=== PATIENT | male | born 1930 | race Caucasian/White ===

== ENCOUNTER 2018-08-20 11:44 | Observation (INO) | payer OTHER, MEDICARE ==
[2018-08-20 13:07] LABS: Absolute Lymphocytes (CBC) 0.9 K/uL (0.7-4.9); Absolute Monocytes 0.4 K/uL (0.1-1.3); Absolute Neutrophil 2.9 K/uL (1.8-8.0); Basophils % 0.3 % (0-1.3); Eosinophils % 3.4 % (0-4.4); Hematocrit 39.2 % (39.6-49.0); Lymphocytes % 21.1 % (15.3-44.8); MCH 29.6 pg (27.0-35.0); MCV 88.7 fL (80-100); MPV 7.3 fL (7.6-11.3); Monocytes % 8.7 % (3.3-12.3); RBC Red Blood Cell Count 4.42 M/uL (4.33-5.43)
[2018-08-20] MEDS ORDERED: NA CHLORIDE 0.9% 1,000 ML ONE (13:27)
[2018-08-20 13:28] LABS: Albumin 3.3 g/dL (3.4-5.0); Bilirubin Direct 0.2 mg/dL (0-0.2); Bilirubin Total 0.5 mg/dL (0.2-1.0); Potassium 3.8 mmol/L (3.5-5.1)
[2018-08-20 16:07] LABS: Urine Blood NEGATIVE (NEG); Urine Glucose NEGATIVE (NEG); Urine Protein 1+ (NEG); Urine Specific Gravity 1.015 (1.005-1.030); Urine pH 5.5 (5.0-7.0)
--- NOTE | 2018-08-20 16:23 | RAD REPORT ---
EXAM DESCRIPTION: CT - Abdomen Pelvis Wo Contrast - 08/20/2018 4:09 pm CLINICAL HISTORY: Abdominal pain. ORAL ONLY, CR TOO HIGH COMPARISON: Abdomen Pelvis Wo Contrast dated 02/13/2016 TECHNIQUE: CT imaging of the abdomen and pelvis was performed without contrast. Solid organ and vasc ular assessment is limited due to lack of IV contrast. All CT scans are performed using dose optimization technique as appropriate and may include automated exposure control or mA/KV adjustment according to patient size. FINDINGS: The lower lung ornelas are clear.Small hiatal hernia is present. The liver, spleen, pancreas, adrenal glands are within normal limits for a limited non-contrast exami nation.No renal stone or hydronephrosis. Slightly complicated bilateral renal cysts are noted. No bowel obstruction, free air, free fluid or abscess. Small soft tissue nodule is seen in the left a spect of the intra-abdominal fat adjacent to both small bowel and sigmoid colon measuring 10 mm. The surrounding fat is mildly inflamed. The appendix is normal. Moderate fecal retention in the rectosigm oid colon. The osseous structures are within normal limits. IMPRESSION: Small soft tissue density lesion in the left intra-abdominal fat with mild surrounding i nflammatory changes is nonspecific but may be related to enlarged lymph node. Advise followup CT imag ing in 3-6 months for surveillance purposes. Significant rectal fecal retention. A limited non-contrast examination was performed as detailed.
[2018-08-20] MEDS ORDERED: ONDANSETRON 4 MG/2 ML VIAL IV PRN (16:57)
[2018-08-20] MEDS ORDERED: ACETAMINOPHEN 500 MG TAB PO PRN (16:57)
--- NOTE | 2018-08-20 16:57 | EDPHYS ---
Physician Documentation [facility] Name: Richard Carranza Age: 88 yrs Sex: Male : 1930 Arrival Date: 08/20/2018 Time: 11:59 Bed 14 Private MD: ED Physician Serge Ariza HPI: 08/20 12:15 This 88 yrs old Male presents to ER via EMS with complaints of Blood Pressure jmm Problem. 12:15 The patient presents to the emergency department with diarrhea, abdominal pain. Onset: jmm The symptoms/episode began/occurred gradually, 3 day(s) ago. Possible causes: unknown. This is an 88 year old male with history of CVA, dementia that presents to the ED with watery bowel movements for 3 days. states the patient had a systolic blood pressure reading of 105 earlier today and was concerned the patient may be dehydrated. . Historical: - Allergies: 12:17 NKDA; iw - Home Meds: 12:21 Vitamin B-12 Oral daily [Active]; Vitamin D3 Complete Oral [Active]; losartan 100 mg iw Oral tab 1 tab once daily [Active]; Plavix 75 mg Oral tab 1 tab once daily [Active]; memantine oral oral [Active]; losartan oral oral once daily [Active]; - PMHx: 12:17 CVA; Dementia; Hypertension; TIA; Cataracts; iw - PSHx: 12:17 right knee; left hand; wrist; iw - Immunization history:: Adult Immunizations up to date. - Social history:: Smoking status: Patient/guardian denies using tobacco. - Ebola Screening: : Patient negative for fever greater than or equal to 101.5 degrees Fahrenheit, and additional compatible Ebola Virus Disease symptoms Patient denies exposure to infectious person Patient denies travel to an Ebola-affected area in the 21 days before illness onset No symptoms or risks identified at this time. ROS: 12:15 Constitutional: Negative for fever, chills, and weight loss, Eyes: Negative for injury, jmm pain, redness, and discharge, Cardiovascular: Negative for chest pain, palpitations, and edema, Respiratory: Negative for shortness of breath, cough, wheezing, and pleuritic chest pain. 12:15 Abdomen/GI: Positive for diarrhea. 12:15 All other systems are negative. Exam: 12:15 Constitutional: This is a well developed, well nourished patient who is awake, alert, jmm and in no acute distress. Head/Face: atraumatic. Eyes: EOMI, no conjunctival erythema appreciated ENT: Moist Mucus Membranes Neck: Trachea midline, Supple Chest/axilla: Normal chest wall appearance and motion. Cardiovascular: Regular rate and rhythm. No edema appreciated Respiratory: Normal respirations, no respiratory distress appreciated 12:15 Abdomen/GI: Inspection: abdomen appears normal, Bowel sounds: normal, Palpation: soft, mild abdominal tenderness, in the right lower quadrant and left lower quadrant. 12:15 Back: ROM is normal. 12:15 Musculoskeletal/extremity: ROM: intact in all extremities. 12:15 Skin: Appearance: Color: normal in color. 12:15 Neuro: Orientation: is normal, Mentation: is normal, Memory: is normal. 12:15 Psych: Behavior/mood is pleasant, cooperative. Vital Signs: 12:15 BP 174 / 59; Pulse 56; Resp 16; Temp 97.6(TE); Pulse Ox 100% on R/A; Weight 89.36 kg; iw Height 6 ft. 1 in. (185.42 cm); Pain 0/10; 13:33 BP 136 / 56; Pulse 54; Resp 14; Temp 98.4; Pulse Ox 99% on R/A; Pain 0/10; ch 14:50 BP 140 / 65; Pulse 58; Resp 16; Temp 97.9; Pulse Ox 99% on R/A; Pain 0/10; ch 17:46 BP 167 / 65; Pulse 62; Resp 15; Temp 99.6; Pulse Ox 99% on R/A; Pain 0/10; ch 18:34 BP 156 / 71; Pulse 54; Resp 18; Pulse Ox 99% ; Pain 0/10; ch 19:08 BP 158 / 66; Pulse 52; Resp 16; Pulse Ox 98% on R/A; mt 20:30 BP 147 / 78; Pulse 60; Resp 18; Pulse Ox 97% on R/A; jb4 12:15 Body Mass Index 25.99 (89.36 kg, 185.42 cm) iw MDM: 12:15 Patient medically screened. [facility] 16:54 Data reviewed: vital signs, nurses notes. Counseling: I had a detailed discussion with patricio the patient and/or guardian regarding: the historical points, exam findings, and any diagnostic results supporting the discharge/admit diagnosis, lab results, radiology results. ED course: I discussed the patient with Dr. Stevenson whom accepted admission. 08/20 12:21 Order name: Basic Metabolic Panel; Complete Time: 13:42 [facility] 08/20 16:51 Interpretation: Abnormal: GFR 41. [facility] 08/20 12:21 Order name: CBC with Diff; Complete Time: 13:42 [facility] 08/20 12:21 Order name: Creatinine for Radiology; Complete Time: 13:42 [facility] 08/20 12:21 Order name: Hepatic Function; Complete Time: 13:42 [facility] 08/20 12:21 Order name: Lipase; Complete Time: 13:42 [facility] 08/20 15:27 Order name: Urine Dipstick--Ancillary (enter results); Complete Time: 16:11 08/20 16:58 Order name: Basic Metabolic Panel [facility] 08/20 16:58 Order name: Basic Metabolic Panel [facility] 08/20 16:58 Order name: CBC with Automated Diff [facility] 08/20 16:58 Order name: CBC with Automated Diff [facility] 08/20 16:58 Order name: Lipase [facility] 08/20 16:58 Order name: Lipase [facility] 08/20 16:58 Order name: Liver (Hepatic) Function [facility] 08/20 16:58 Order name: Liver (Hepatic) Function [facility] 08/20 12:21 Order name: IV Saline Lock; Complete Time: 13:04 [facility] 08/20 12:21 Order name: Labs collected and sent; Complete Time: 13:04 [facility] 08/20 14:22 Order name: Abdomen ; Complete Time: 16:28 [facility] 08/20 16:58 Order name: NPO EDIN Administered Medications: 13:35 Drug: NS 0.9% 500 ml Route: IV; Rate: bolus; Site: left antecubital; ch 15:13 Follow up: IV Status: Completed infusion; IV Intake: 500ml ch 17:00 Drug: Rocephin - (cefTRIAXone) 1 grams Route: IVPB; Infused Over: 30 mins; Site: left ch antecubital; 18:32 Follow up: IV Status: Completed infusion; IV Intake: 50ml ch Disposition: 08/21 13:56 Co-signature as Attending Physician, Serge Ariza MD I agree with the assessment and kdr plan of care. Disposition: 08/20/18 16:55 Hospitalization ordered by Paolo Stevenson for Observation. Preliminary diagnosis are Dehydration, Diarrhea, unspecified. - Bed requested for Telemetry/MedSurg (observation). - Status is Observation. jb4 - Condition is Stable. - Problem is new. - Symptoms are unchanged. UTI on Admission? No Signatures: Dispatcher [employer] [facility] Binta Arriaga, RN RN Serge Zaldivar MD MD [facility] Junior Nixon PA PA [facility] Luba Bowen, RN RN Anand Toledo em1 Richard Baker RN RN jb4 Corrections: (The following items were deleted from the chart) 08/20 14:22 12:22 Abdomen Pelvis W Con+CT.RAD.BRZ ordered. [facility] 19:25 16:55 Hospitalization Ordered by Paolo Stevenson MD for Observation. Preliminary em1 diagnosis is Dehydration; Diarrhea, unspecified. Bed requested for Telemetry/MedSurg (observation). Status is Observation. Condition is Stable. Problem is new. Symptoms are unchanged. UTI on Admission? No. [facility] 21:17 19:25 08/20/2018 16:55 Hospitalization Ordered by Paolo Stevenson MD for Observation. jb4 Preliminary diagnosis is Dehydration; Diarrhea, unspecified. Bed requested for Telemetry/MedSurg (observation). Status is Observation. Condition is Stable. Problem is new. Symptoms are unchanged. UTI on Admission? No. em1
--- NOTE | 2018-08-20 16:57 | ER ---
Nurse's Notes [facility] Name: Richard Carranza Age: 88 yrs Sex: Male : 1930 Arrival Date: 08/20/2018 Time: 11:59 Bed 14 Private MD: Diagnosis: Dehydration;Diarrhea, unspecified Presentation: 08/20 12:11 Presenting complaint: EMS states: was seen by PT today and was told his BP was running iw low, also had diarrhea yesterday, not eating much, felt weak yesterday. Transition of care: patient was not received from another setting of care. Onset of symptoms was August 20, 2018. Risk Assessment: Do you want to hurt yourself or someone else? Patient reports no desire to harm self or others. Initial Sepsis Screen: Does the patient meet any 2 criteria? No. Patient's initial sepsis screen is negative. Does the patient have a suspected source of infection? No. Patient's initial sepsis screen is negative. Care prior to arrival: None. 12:11 Method Of Arrival: EMS: [facility] iw 12:11 Acuity: MARA 3 iw Triage Assessment: 13:33 General: Appears in no apparent distress. comfortable, Behavior is calm, cooperative, ch appropriate for age. Pain: Denies pain. Neuro: Level of Consciousness is awake, alert, obeys commands, Oriented to person, place, Eyeglass Frame Truer are equal bilaterally Moves all extremities. Gait is unsteady, Speech is normal, Facial symmetry appears normal, Facial symmetry: tongue is midline, Pupils are PERRLA. Respiratory: Airway is patent Respiratory effort is even, unlabored, Breath sounds are clear bilaterally. GI: Abdomen is round non-distended, Bowel sounds present X 4 quads. Abd is soft X 4 quads Abdomen is tender to palpation in right lower quadrant and left lower quadrant Reports diarrhea, nausea. Derm: Skin is pale. Historical: - Allergies: 12:17 NKDA; iw - Home Meds: 12:21 Vitamin B-12 Oral daily [Active]; Vitamin D3 Complete Oral [Active]; losartan 100 mg iw Oral tab 1 tab once daily [Active]; Plavix 75 mg Oral tab 1 tab once daily [Active]; memantine oral oral [Active]; losartan oral oral once daily [Active]; - PMHx: 12:17 CVA; Dementia; Hypertension; TIA; Cataracts; iw - PSHx: 12:17 right knee; left hand; wrist; iw - Immunization history:: Adult Immunizations up to date. - Social history:: Smoking status: Patient/guardian denies using tobacco. - Ebola Screening: : Patient negative for fever greater than or equal to 101.5 degrees Fahrenheit, and additional compatible Ebola Virus Disease symptoms Patient denies exposure to infectious person Patient denies travel to an Ebola-affected area in the 21 days before illness onset No symptoms or risks identified at this time. Screenin:50 Abuse screen: Denies threats or abuse. Denies injuries from another. Nutritional ch screening: On. Tuberculosis screening: No symptoms or risk factors identified. Fall Risk None identified. Assessment: 14:50 General: Appears in no apparent distress. comfortable, Behavior is calm, cooperative, ch appropriate for age. Pain: Denies pain. Neuro: Level of Consciousness is awake, alert, obeys commands, Oriented to person, place, Eyeglass Frame Truer are equal bilaterally Moves all extremities. Full function. Respiratory: Airway is patent Trachea midline Respiratory effort is even, unlabored. GI: Abdomen is round non-distended, Bowel sounds present X 4 quads. Abd is soft X 4 quads Abdomen is tender to palpation in right lower quadrant, left lower quadrant and abdomen diffusely. : No signs and/or symptoms were reported regarding the genitourinary system. Derm: Skin is pale. 15:11 Reassessment: Patient appears in no apparent distress at this time. No changes from previously documented assessment. Patient and/or family updated on plan of care and expected duration. Pain level reassessed. pt assisted oob to use urinal. pt stands with assistance. pt has had a bm, pt cleaned, brief changed, gown changed. pt tolerated well, awaiting ct scan. pt finished contrast at 1430. 16:30 Reassessment: Patient appears in no apparent distress at this time. No changes from previously documented assessment. Patient and/or family updated on plan of care and expected duration. Pain level reassessed. 17:45 Reassessment: Patient appears in no apparent distress at this time. Patient and/or ch family updated on plan of care and expected duration. Pain level reassessed. pt oob again for urinal, and bm. pt cleaned again. 19:00 Reassessment: Patient appears in no apparent distress at this time. Patient and/or jb4 family updated on plan of care and expected duration. Pain level reassessed. respirations even and unlabored. Pt is alert and oriented to self and location. Family reports this is normal for the pt. 20:18 Reassessment: Patient appears in no apparent distress at this time. No changes from jb4 previously documented assessment. Patient and/or family updated on plan of care and expected duration. Pain level reassessed. Assisted pt with urination. Unsteady gate noted. pt assisted back to bed. both rails up. family at the bedside. Vital Signs: 12:15 BP 174 / 59; Pulse 56; Resp 16; Temp 97.6(TE); Pulse Ox 100% on R/A; Weight 89.36 kg; iw Height 6 ft. 1 in. (185.42 cm); Pain 0/10; 13:33 BP 136 / 56; Pulse 54; Resp 14; Temp 98.4; Pulse Ox 99% on R/A; Pain 0/10; ch 14:50 BP 140 / 65; Pulse 58; Resp 16; Temp 97.9; Pulse Ox 99% on R/A; Pain 0/10; ch 17:46 BP 167 / 65; Pulse 62; Resp 15; Temp 99.6; Pulse Ox 99% on R/A; Pain 0/10; ch 18:34 BP 156 / 71; Pulse 54; Resp 18; Pulse Ox 99% ; Pain 0/10; ch 19:08 BP 158 / 66; Pulse 52; Resp 16; Pulse Ox 98% on R/A; mt 20:30 BP 147 / 78; Pulse 60; Resp 18; Pulse Ox 97% on R/A; jb4 12:15 Body Mass Index 25.99 (89.36 kg, 185.42 cm) ED Course: 11:59 Patient arrived in ED. iw 12:03 Junior Nixon PA is PHCP. [facility] 12:03 Serge Ariza MD is Attending Physician. [facility] 12:13 Binta Arriaga, ROBE is Primary Nurse. 12:15 Triage completed. iw 12:15 Arm band placed on. iw 13:30 No provider procedures requiring assistance completed. Inserted saline lock: 22 gauge ch in left antecubital area, using aseptic technique. Blood collected. 14:50 Patient has correct armband on for positive identification. Placed in gown. Bed in low ch position. Call light in reach. Side rails up X2. Adult w/ patient. Pulse ox on. NIBP on. Warm blanket given. 16:09 Abdomen In Process Unspecified. EDMS 16:55 Paolo Stevenson MD is Hospitalizing Provider. [facility] 19:27 Report given to Pacheco. 19:27 Missed attempt(s): 22 gauge in left upper arm. ch 20:45 Patient admitted, IV remains in place. jb4 21:16 Primary Nurse role handed off by Binta Arriaga, RN charley 21:16 Richard Baker, RN is Primary Nurse. jb4 Administered Medications: 13:35 Drug: NS 0.9% 500 ml Route: IV; Rate: bolus; Site: left antecubital; 15:13 Follow up: IV Status: Completed infusion; IV Intake: 500ml 17:00 Drug: Rocephin - (cefTRIAXone) 1 grams Route: IVPB; Infused Over: 30 mins; Site: left ch antecubital; 18:32 Follow up: IV Status: Completed infusion; IV Intake: 50ml ch Intake: 15:13 IV: 500ml; Total: 500ml. ch 18:32 IV: 50ml; Total: 550ml. Outcome: 16:55 Decision to Hospitalize by Provider. jmm 20:45 Admitted to Tele accompanied by [facility], via stretcher, room 427, with chart, Report jb4 called to ROBE Martinez 20:45 Condition: stable 20:45 Instructed on the need for admit, Demonstrated understanding of instructions. 21:17 Patient left the ED. charley Signatures: Dispatcher [employer] EDMS Binta Arriaga, RN ROBE Junior Nixon PA PA Luba Mckenna, RN ROBE Richard Baker, RN Marcela Massey me
[2018-08-20] MEDS: D5 0.45 NS 1,000 ML IV SCH ×2 (17:00→22:00)
[2018-08-20] MEDS ORDERED: CEFTRIAXONE/SWI 1gm 1 GM/10 ML SYR ONE (18:16)
[2018-08-20] MEDS ORDERED: CEFTRIAXONE/SWI 1gm 1 GM/10 ML SYR IV SCH (21:00)
[2018-08-21 00:59] VITALS: BMI 25.9
[2018-08-21 02:10] LABS: Urine Appearance CLEAR; Urine Bilirubin NEGATIVE (NEG); Urine Blood NEGATIVE (NEG); Urine Color YELLOW; Urine Glucose NEGATIVE (NEG); Urine Protein TRACE (NEG); Urine Specific Gravity 1.015 (1.005-1.030); Urine Urobilinogen 0.2 mg/dL (0.2-1.0); Urine pH 5.5 (5.0-7.0)
[2018-08-21 02:11] LABS: Urine Microscopic Reflex ORDER UMIC
[2018-08-21 02:19] LABS: Urine Culture Reflex Order NOT NEEDED
[2018-08-21 02:20] LABS: Urine Bacteria <20 /HPF (NONE SEEN); Urine RBC <5 /HPF (NONE SEEN)
[2018-08-21 04:12] LABS: Absolute Monocytes 0.4 K/uL (0.1-1.3); Absolute Neutrophil 2.6 K/uL (1.8-8.0); Basophils % 0.7 % (0-1.3); Eosinophils % 4.6 % (0-4.4); Hematocrit 36.6 % (39.6-49.0); Lymphocytes % 24.7 % (15.3-44.8); MCV 88.7 fL (80-100); MPV 7.3 fL (7.6-11.3); Monocytes % 9.6 % (3.3-12.3); RBC Red Blood Cell Count 4.13 M/uL (4.33-5.43)
[2018-08-21 04:25] LABS: Bilirubin Direct 0.2 mg/dL (0-0.2); Bilirubin Total 0.6 mg/dL (0.2-1.0); Protein, Total 5.5 g/dL (6.4-8.2)
[2018-08-21] MEDS: D5 0.45 NS 1,000 ML IV SCH (05:54)
[2018-08-21] MEDS: CEFTRIAXONE/SWI 1gm 1 GM/10 ML SYR IVP SCH ×2 (08:24→20:39)
[2018-08-21] MEDS ORDERED: CEFTRIAXONE/SWI 1gm 1 GM/10 ML SYR IV SCH (09:00)
[2018-08-21] MEDS ORDERED: LOSARTAN POTASSIUM 50 MG TABLET PO SCH (09:00)
[2018-08-21] MEDS: NYSTATIN 500,000 UNIT/5 ML UDC PO SCH (20:39)
[2018-08-21] MEDS: CLOTRIMAZ/BETAMETH CREAM 15GM TOP SCH (20:39)
[2018-08-21] MEDS: TAMSULOSIN 0.4 MG SR CAP PO SCH (20:40)
[2018-08-21] MEDS: MEMANTINE HCL 10 MG TABLET PO SCH (20:40)
[2018-08-21] MEDS ORDERED: MEMANTINE HCL 5 MG PO SCH (21:00)
--- NOTE | 2018-08-22 01:17 | PN ---
Date of Progress Note: 08/21/2018 The patient states he feels somewhat better tonight. According to family, he is more alert. However , he is still rather lethargic and I feel a PT consult will be necessary. The possibility of moving him to a SNF was also discussed with the family. Stool cultures have been negative. Hydration seems t o be a problem which is repetitive with his last admission. Depending on how he is in the morning, d isposition will be made with regard to home or SNF. Present time, I do not feel he can be handled at home because of the weakness causing his immobility. HR/MODL Voice ID: [id number] Report ID: [id number]
[2018-08-22] MEDS ORDERED: HOME MED 1 EA UNK (Losartan Potassium [Cozaar] 100 MG) PO SCH (09:00)
[2018-08-22] MEDS: LOSARTAN POTASSIUM 50 MG TABLET PO SCH (09:35)
[2018-08-22] MEDS: FOLIC ACID 1 MG TABLET PO SCH (09:35)
[2018-08-22] MEDS: CEFTRIAXONE/SWI 1gm 1 GM/10 ML SYR IVP SCH ×2 (09:36→20:59)
[2018-08-22] MEDS: ENOXAPARIN 30 MG/0.3 ML SQ SCH (09:36)
[2018-08-22] MEDS: MEMANTINE HCL 10 MG TABLET PO SCH ×2 (09:36→20:58)
[2018-08-22] MEDS: CLOPIDOGREL 75 MG TABLET PO SCH (09:37)
[2018-08-22] MEDS: CLOTRIMAZ/BETAMETH CREAM 15GM TOP SCH ×2 (09:37→20:59)
[2018-08-22] MEDS: NYSTATIN 500,000 UNIT/5 ML UDC PO SCH ×4 (09:37→20:58)
[2018-08-22] MEDS: CYANOCOBALAMIN 1,000 MCG TAB PO SCH (09:37)
[2018-08-22] MEDS: D5W 1,000 ML IV SCH (09:43)
[2018-08-22] MEDS: TAMSULOSIN 0.4 MG SR CAP PO SCH (20:59)
[2018-08-23] MEDS: cloNIDine HCl 0.1 MG TAB PO PRN ×2 (04:23→20:26)
[2018-08-23 05:25] LABS: Absolute Lymphocytes (CBC) 0.9 K/uL (0.7-4.9); Absolute Monocytes 0.4 K/uL (0.1-1.3); Absolute Neutrophil 2.3 K/uL (1.8-8.0); Basophils % 0.6 % (0-1.3); Eosinophils % 4.6 % (0-4.4); Hematocrit 38.8 % (39.6-49.0); MCH 30.1 pg (27.0-35.0); MCV 87.8 fL (80-100); MPV 7.3 fL (7.6-11.3); Monocytes % 11.3 % (3.3-12.3); RBC Red Blood Cell Count 4.42 M/uL (4.33-5.43)
[2018-08-23 05:38] LABS: Potassium 4.2 mmol/L (3.5-5.1)
[2018-08-23] MEDS: CEFTRIAXONE/SWI 1gm 1 GM/10 ML SYR IVP SCH ×2 (09:46→20:25)
[2018-08-23] MEDS: ENOXAPARIN 30 MG/0.3 ML SQ SCH (09:46)
[2018-08-23] MEDS: CLOTRIMAZ/BETAMETH CREAM 15GM TOP SCH ×2 (09:46→21:00)
[2018-08-23] MEDS: CLOPIDOGREL 75 MG TABLET PO SCH (09:48)
[2018-08-23] MEDS: FOLIC ACID 1 MG TABLET PO SCH (09:48)
[2018-08-23] MEDS: NYSTATIN 500,000 UNIT/5 ML UDC PO SCH ×4 (09:48→20:26)
[2018-08-23] MEDS: MEMANTINE HCL 10 MG TABLET PO SCH ×2 (09:48→20:24)
[2018-08-23] MEDS: CYANOCOBALAMIN 1,000 MCG TAB PO SCH (09:48)
[2018-08-23] MEDS: LOSARTAN POTASSIUM 50 MG TABLET PO SCH (09:49)
--- NOTE | 2018-08-23 18:54 | PN ---
Date of Progress Note: 08/23/2018 The patient's blood pressure is stabilizing today; however, was markedly elevated last night with layne e fluctuations, requires some adjustments of his medication. Today, he is still rather listless, ramakrishna etite fluctuates. Therefore, continue with the IVs. Discussion of placement was made with the famil y and a SNF Unit would probably be the best choice. We will discuss this with the social media senior associate on M on. HR/MODL Voice ID: [id number] Report ID: [id number]
[2018-08-23] MEDS: TAMSULOSIN 0.4 MG SR CAP PO SCH (20:24)
--- NOTE | 2018-08-23 22:57 | HP ---
Date of Admission: 08/20/2018 Chief Complaint: Generalized weakness, abdominal pain, diarrhea. History Of Present Illness: The patient states and confirmed by his who is basically his careta holly that the above outlined symptoms have been going on for approximately 3 or 4 days with increasing severity in the past 24 hours where he has difficulty mobilizing. Prior to this, he was using a wal ker to get around. He was seen in the emergency room. The dehydration was obviously present, was mynor lused and admitted. 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 The patient also had a CVA number of years ago, which has left him with some weakness and dementia although he has been able to mobilize and he has required some steroid shots for his joint pain. Also, has a history of hypertens ion, controlled on various doses of medication. Social History: Nonsmoker, nondrinker. Family History: Noncontributory. Physical Examination: General: Patient is an elderly male, orientated but drowsy and appears quite weak. Head and Neck: Normocephalic. Pupils are equal, reactive to light and accommodation, fundi negative. Trachea midline. Thyroid not palpable. ENT: Negative. Chest: Clear to P and A. Cardiovascular: PMI midclavicular line. Heart sounds normal. Peripheral p ulses present and equal bilaterally. Abdomen: Minimal tenderness in paraumbilical midepigastric area. No guarding, rebound, tenderness, or rigidity. Bowel sounds hyperactive. Extremities: Significant dehydration. Good tone and movement bilaterally. Neurologic: Reflexes physiologic. Rectal: Deferred. Impression: Acute enteritis with dehydration; cerebrovascular accident, old, stable; hypertension, c ontrolled. Plan: The patient will be admitted after being bolused with IV fluids, be treated symptomatically an d diet will be controlled by his symptoms and depending on his responsiveness determined how long he necessitates hospitalization. HR/MODL Voice ID: [id number]
[2018-08-24] MEDS: D5W 1,000 ML IV SCH (01:49)
[2018-08-24 05:47] LABS: Absolute Lymphocytes (CBC) 1.1 K/uL (0.7-4.9); Absolute Monocytes 0.5 K/uL (0.1-1.3); Absolute Neutrophil 2.8 K/uL (1.8-8.0); Basophils % 0.4 % (0-1.3); Eosinophils % 5.4 % (0-4.4); Hematocrit 39.9 % (39.6-49.0); Lymphocytes % 23.2 % (15.3-44.8); MCV 88.4 fL (80-100); MPV 7.6 fL (7.6-11.3); Monocytes % 10.7 % (3.3-12.3); RBC Red Blood Cell Count 4.51 M/uL (4.33-5.43)
[2018-08-24] MEDS: CYANOCOBALAMIN 1,000 MCG TAB PO SCH (09:05)
[2018-08-24] MEDS: LOSARTAN POTASSIUM 50 MG TABLET PO SCH (09:06)
[2018-08-24] MEDS: FOLIC ACID 1 MG TABLET PO SCH (09:06)
[2018-08-24] MEDS: CLOPIDOGREL 75 MG TABLET PO SCH (09:06)
[2018-08-24] MEDS: MEMANTINE HCL 10 MG TABLET PO SCH ×2 (09:06→20:48)
[2018-08-24] MEDS: NYSTATIN 500,000 UNIT/5 ML UDC PO SCH ×4 (09:07→20:51)
[2018-08-24] MEDS: ENOXAPARIN 30 MG/0.3 ML SQ SCH (09:08)
[2018-08-24] MEDS: CLOTRIMAZ/BETAMETH CREAM 15GM TOP SCH ×2 (09:09→20:49)
--- NOTE | 2018-08-24 20:25 | PN ---
Date of Progress Note: 08/24/2018 The patient looks and feels much better tonight, is more orientated. His appetite is improved consid erably as well as his mental status. The IV fluids will be discontinued. The possibility he could b e able to go back to home living encouraged rather than the SNF. Decision will be made in the a.m. HR/MODL Voice ID: [id number] Report ID: [id number]
[2018-08-24] MEDS: TAMSULOSIN 0.4 MG SR CAP PO SCH (20:49)
[2018-08-25] MEDS: cloNIDine HCl 0.1 MG TAB PO PRN ×2 (00:43→13:25)
[2018-08-25 01:23] VITALS: O2SAT 99
[2018-08-25 08:32] VITALS: TEMP 97
[2018-08-25] MEDS: LOSARTAN POTASSIUM 50 MG TABLET PO SCH (08:57)
[2018-08-25] MEDS: MEMANTINE HCL 10 MG TABLET PO SCH (08:57)
[2018-08-25] MEDS: NYSTATIN 500,000 UNIT/5 ML UDC PO SCH ×2 (08:57→13:25)
[2018-08-25] MEDS: CLOPIDOGREL 75 MG TABLET PO SCH (08:57)
[2018-08-25] MEDS: CYANOCOBALAMIN 1,000 MCG TAB PO SCH (08:57)
[2018-08-25] MEDS: FOLIC ACID 1 MG TABLET PO SCH (08:58)
[2018-08-25] MEDS: ENOXAPARIN 30 MG/0.3 ML SQ SCH (08:58)
[2018-08-25] MEDS: CLOTRIMAZ/BETAMETH CREAM 15GM TOP SCH (08:58)
[2018-08-25 13:31] VITALS: BP 196/81
== END 2018-08-25 15:49 | disposition home health service (06) ==
LOC: ER 11:44 → ERHOLD 16:56 → 4TH 20:58
PROVIDERS: ADMIT Family Medicine; ATTEND Family Medicine
DX: K52.9 Noninfective gastroenteritis and colitis, unspecified (principal); E86.0 Dehydration; R53.1 Weakness; I10 Essential (primary) hypertension; Z86.73 Personal history of transient ischemic attack (TIA), and cerebral infarction without residual deficits
CPT/HCPCS: 36415 ×3; 74176; 80048 ×3; 80076 ×2; 81003; 83690 ×2; 85025 ×4; 87086; 87088; 87493; 96361; 96365; 96366; 97116 ×2; 97163; 97530 ×2; 99285; J0696 ×7; J1650 ×4; J7030; 81015; G0378